=== PATIENT | female | born 1955 | race Two or more races ===

== ENCOUNTER 2020-09-03 15:22 | Emergency (ER) | payer MEDICARE ==
[~2020-09-03] VITALS: Ht 160 cm; Wt 72.6 kg
[~2020-09-03 15:22] MED LIST: ALBU90OI INH; Amlodipine Bes2.5 MG PO; Aspirin EC81 MG PO; BENADRYL25 MG PO; CHLO500 PO; CODBUTACEC PO; Cleocin HCl300 MG PO; FOLI1 PO; Flonase 0.05% N16 GM; HYDSUL200 PO; IPRA.03NI; IPRAIS NEB; MELO7.5 PO; METTREX2.5 PO; MONT10T PO; OMEP20ER; OMEPRAZOLE MAGN20 MG PO; OXYACE5T PO; PERIDEX15 ML MM; PREG75 PO; Peridex480 ML; SUMA25 PO; SYNTHROID25 MCG PO; TEMA15 PO; Tylenol325 MG PO; Ventolin/Prove6.7 GM INH; ZOLP10 PO
[2020-09-03] MEDS ORDERED: ATENOLOL25 MG PO (15:43)
[2020-09-03 16:48] LABS: BASOPHILS ABSOLUTE AUTO 0.01 K/mm3 (0.00-0.23); BASOPHILS PERCENT AUTO 0 % (0-2); EOSINOPHILS PERCENT AUTO 0 % (0-6); Hematocrit 36.9 % (33.0-51.0); Hemoglobin 12.3 g/dL (11.5-16.0); IMMATURE GRAN ABSOLUTE AUTO 0.06 K/mm3 (0.00-0.10); IMMATURE GRAN PERCENT AUTO 1 % (0-1); LYMPHOCYTES ABSOLUTE AUTO 0.56 K/mm3 (0.84-5.20); LYMPHOCYTES PERCENT AUTO 9 % (21-46); MONOCYTES ABSOLUTE AUTO 0.31 K/mm3 (0.16-1.47); MONOCYTES PERCENT AUTO 5 % (4-13); Mean Corpuscular HGB 33.7 pg (26.0-34.0); Mean Corpuscular HGB Conc 33.3 g/dL (31.5-36.5); Mean Corpuscular Volume 101 fL (80-100); Mean Platelet Volume 9.8 fL (9.1-12.4); NEUTROPHILS ABSOLUTE AUTO 5.55 K/mm3 (1.96-9.15); NEUTROPHILS PERCENT AUTO 86 % (41-73); Platelet Count 238 K/mm3 (150-400); RDW Coefficient Variation 13.2 % (11.7-14.2); RDW Standard Deviation 49.4 fL (35.1-46.3); Red Blood Cell Count 3.65 M/mm3 (3.80-5.20); White Blood Cell Count 6.49 K/mm3 (4.00-11.30)
[2020-09-03 17:02] LABS: Alanine Aminotransfer (ALT/SGP 69 U/L (12-78); Albumin, Blood 3.4 g/dL (3.4-5.0); Albumin/Globulin Ratio 0.8 (0.8-1.8); Alk Phos 98 U/L (50-136); Anion Gap 12 mmol/L (6-16); Aspartate Aminotrans (AST/SGOT 58 U/L (12-37); Bilirubin, Total 0.4 mg/dL (0.1-1.0); Blood Urea Nitrogen 17 mg/dL (8-24); Bun/Creatinine Ratio 20.9 (12.0-20.0); CO2, Blood 18 mmol/L (21-32); Chloride, Blood 105 mmol/L (98-108); Creatinine, Blood 0.81 mg/dL (0.40-1.00); Globulin, Blood 4.1 g/dL (2.2-4.0); Glomerular Filtration Rate >60 (60-); Glucose, Blood 96 mg/dL (70-99); Potassium, Blood 3.7 mmol/L (3.5-5.5); Sodium, Blood 135 mmol/L (136-145); Total Protein, Blood 7.5 g/dL (6.4-8.2); Troponin I <0.015 ng/mL (0.000-0.040)
[2020-09-03] MEDS ORDERED: Zithromax250 MG PO (18:38)
[2020-09-03] MEDS ORDERED: ONDA4ODT MM (18:38)
== END 2020-09-03 18:52 | disposition home or self-care (01) ==
LOC: ER 15:22
PROVIDERS: Physician Assistant
DX: U07.1 COVID-19 (principal); E78.5 Hyperlipidemia, unspecified; I10 Essential (primary) hypertension; J45.909 Unspecified asthma, uncomplicated; F32.9 Major depressive disorder, single episode, unspecified; E03.9 Hypothyroidism, unspecified; J12.89 Other viral pneumonia; Z79.82 Long term (current) use of aspirin; Z88.8 Allergy status to other drugs, medicaments and biological substances; Z87.442 Personal history of urinary calculi; Z79.899 Other long term (current) drug therapy
CPT/HCPCS: 36415; 71045; 80053; 84145; 84484; 85025; 93005; 93010; 96374; 96375; 99284-25; J0780; J1200; J2405; J7120

== ENCOUNTER 2020-09-07 14:14 | Emergency (ER) | payer MEDICARE ==
[~2020-09-07] VITALS: Ht 160 cm; Wt 72.6 kg
[~2020-09-07 14:14] MED LIST changes: +ATENOLOL25 MG PO; +ONDA4ODT MM; +Zithromax250 MG PO
== END 2020-09-07 15:26 | disposition home or self-care (01) ==
LOC: ER 14:14
DX: U07.1 COVID-19 (principal); R05 Cough; R53.83 Other fatigue; I10 Essential (primary) hypertension; E78.5 Hyperlipidemia, unspecified; E03.9 Hypothyroidism, unspecified; J45.909 Unspecified asthma, uncomplicated; Z88.8 Allergy status to other drugs, medicaments and biological substances; Z79.82 Long term (current) use of aspirin; Z79.899 Other long term (current) drug therapy; Z87.442 Personal history of urinary calculi
CPT/HCPCS: 99282

== ENCOUNTER 2021-12-03 06:09 | Day surgery (SDC) | payer MEDICARE ==
[~2021-12-03] VITALS: Ht 160 cm; Wt 67.3 kg
--- NOTE | 2021-12-03 08:03 | NUR ---
12/03/21 0803 Pam Zhao 0.15ML OF EPI 1MG/ML ADDED TO 30ML OF BUPIVICAINE 0.5% TO CREATE A SOLUTION OF BUPIVICAINE 0.5% WITH EPI 1:200,000.
== END 2021-12-03 09:59 | disposition home or self-care (01) ==
LOC: ORSCSDS 06:09
PROVIDERS: Podiatrist Foot & Ankle Surgery
PROC: 0SGJ04Z Fusion of Left Tarsal Joint with Internal Fixation Device, Open Approach (ICD-10-PCS; principal; 2021-12-03 07:30)
DX: M19.072 Primary osteoarthritis, left ankle and foot (principal); I10 Essential (primary) hypertension; K21.9 Gastro-esophageal reflux disease without esophagitis; E03.9 Hypothyroidism, unspecified; M79.7 Fibromyalgia; Z79.899 Other long term (current) drug therapy
CPT/HCPCS: A9270; C1713; C1734; C1769; J0171; J0690; J1100; J2250; J2405; J2704; J2765; J3010

== ENCOUNTER 2022-04-21 06:50 | Day surgery (SDC) | payer MEDICARE ==
[~2022-04-21] VITALS: Ht 157.5 cm; Wt 68.5 kg
--- NOTE | 2022-04-21 11:28 | NUR ---
04/21/22 1128 Lisa Delaney S PT. WAS COVID POSITIVE ON04/04/22. PT. HAD SYMPTOMS PER DR. KENDRICK & IT HASN'T BEEN 6 WEEKS SINCE SHE TESTED POSITIVE. PER DR. ALVARENGA, PT. DIDN'T TELL HIS OFFICE THAT SHE HAD COVID. DR. ALVARENGA TALKED WITH PT. BEFORE LEAVING. DR. KENDRICK & DR. ALVARENGA CANCELLED CASE.
== END 2022-04-21 08:27 | disposition home or self-care (01) ==
LOC: ORSCSDS 06:50
DX: Z86.010 Personal history of colon polyps (principal); Z53.9 Procedure and treatment not carried out, unspecified reason
CPT/HCPCS: J7120